=== PATIENT | male | born 1955 | race Caucasian/White ===

== ENCOUNTER 2025-04-18 19:46 | Emergency (ER) | payer OTHER ==
[~2025-04-18] VITALS: Ht 162.5 cm; Wt 72.6 kg
[2025-04-18] MEDS ORDERED: METHOCARBAMOL 750 MG TAB PO ONE (20:40)
[2025-04-18] MEDS ORDERED: METHOCARBAMOL500 M1 PO (22:28)
== END 2025-04-18 22:42 | disposition home or self-care (01) ==
LOC: ED 19:46
DX: S16.1XXA Strain of muscle, fascia and tendon at neck level, initial encounter (principal); V89.2XXA Person injured in unspecified motor-vehicle accident, traffic, initial encounter; Y93.89 Activity, other specified; Y92.488 Other paved roadways as the place of occurrence of the external cause; Y99.8 Other external cause status